=== PATIENT | female | born 1945 | race Caucasian/White ===

== ENCOUNTER 2016-08-23 14:20 | Inpatient (IN) | payer OTHER, MEDICARE ==
[~2016-08-23] VITALS: Ht 162.6 cm; Wt 67.5 kg
[~2016-08-23 14:20] MED LIST: AGGRENOX1 CAPSULE PO; AMITRIPTYLINE H25 MG PO; ARICEPT5 MG PO; ASPIR-LOW81 MG PO; ATENOLOL25 MG PO; BIOTIN5 M1 PO; CALCIUM ANTAC1000 MG PO; CELEXA20 MG PO; CENTRUM SILVER1 EAC3 PO; CIPRO500 MG PO; CYANOCOBAL1000 MCG/2 IM; FISH OIL500 MG PO; FLAGYL500 MG PO; FLORA-Q CAPSUL1 EAC1 PO; GABAPENTIN300 MG PO; HYDROCHLOROTH12.5 M3 PO; HYDROCHLOROTHIA25 MG PO; LEVOTHYROXINE25 MCG PO; MELOXICAM7.5 MG PO; METRONIDAZOLE500 MG PO; MUCINEX1200 MG PO; NEURONTIN100 MG PO; PRILOSEC20 MG PO; SYNTHROID112 MCG PO; VICODIN HP 10-1 EACH PO; VITAMIN B12 IM; XANAX0.25 MG PO; ZOCOR10 MG PO
[2016-08-23 15:34] LABS: HEMATOCRIT 36.6 % (36.0-46.0); MCH 27.8 PG (29.0-34.0); MCHC 31.4 G/DL (30.0-36.0); MCV 88.4 FL (83-99); PLATELET COUNT 172 K/uL (156-360); RBC DIS.WIDTH-CV 15.3 % (11.8-14.6); RBC DIS.WIDTH-SD 49.7 % (39-53); RED BLOOD COUNT 4.14 M/uL (3.80-5.20); WHITE BLOOD COUNT 7.7 K/uL (4.1-10.2)
[2016-08-23 15:50] LABS: CHLORIDE 107 mEq/L (99-109); POTASSIUM 3.9 mEq/L (3.7-5.4); SODIUM 142 mEq/L (136-147)
[2016-08-23 15:52] LABS: GLUCOSE 111 mg/dL (70-99)
[2016-08-23 15:53] LABS: ANION GAP 10 MEQ/L (2-14)
[2016-08-23 15:55] LABS: GFR ESTIMATE (CALCULATED) > 59 mL/min/
[2016-08-23 15:56] LABS: TROP-I INTERPRETATION NEGATIVE; TROPONIN-I < 0.01 ng/mL (0.0-0.30); UREA NITROGEN (BUN) 10 mg/dL (9-23)
[2016-08-23] MEDS ORDERED: ARICEPT10 MG PO (18:05)
[2016-08-23] MEDS ORDERED: ZOCOR40 MG PO (18:06)
[2016-08-23] MEDS ORDERED: OMEGA 3 500 SO1 EACH PO (18:08)
[2016-08-23] MEDS ORDERED: NEURONTIN300 MG PO (18:11)
[2016-08-23] MEDS ORDERED: CALCIUM ANTAC1000 MG PO (18:14)
[2016-08-23] MEDS ORDERED: SYNTHROID100 MCG PO (18:16)
[2016-08-23] MEDS ORDERED: VITAMIN B-12500 MC5 SL (18:17)
[2016-08-23] MEDS ORDERED: BENTYL10 MG PO (18:19)
[2016-08-23] MEDS ORDERED: TRAZODONE HCL50 MG PO (18:19)
[2016-08-23] MEDS ORDERED: ALENDRONATE SOD70 MG PO (18:20)
[2016-08-23] MEDS ORDERED: ASCORBIC ACID500 M1 PO (18:21)
[2016-08-23] MEDS ORDERED: VITAMIN D31000 UNIT PO (18:21)
[2016-08-23 20:04] LABS: HDL CHOLESTEROL 55 MG/DL (Desirable>=50); LDL CHOLESTEROL 82 mg/dL (Desirable<100); NON-HDL CHOLESTEROL 100 mg/dL (Desirable<160); TOTAL CHOLESTEROL 155 mg/dL (Desirable<200); TRIGLYCERIDES 90 MG/DL (Normal: <150)
[2016-08-23 20:58] LABS: Estimated Average Glucose 120 mg/dL (70-123); HEMOGLOBIN A1c (GLYCOHEMOGLOB) 5.8 % HGB (Below 5.7)
[2016-08-23 22:14] VITALS: BP 170/84
[2016-08-24 03:41] VITALS: BP 186/84
[2016-08-24 06:59] LABS: HEMATOCRIT 39.1 % (36.0-46.0); MCH 27.6 PG (29.0-34.0); MCHC 31.7 G/DL (30.0-36.0); MCV 87.1 FL (83-99); MEAN PLAT.VOLUME 10.1 uM^3 (9.5-12.4); PLATELET COUNT 180 K/uL (156-360); RBC DIS.WIDTH-CV 15.2 % (11.8-14.6); RBC DIS.WIDTH-SD 48.7 % (39-53); RED BLOOD COUNT 4.49 M/uL (3.80-5.20); WHITE BLOOD COUNT 7.1 K/uL (4.1-10.2)
[2016-08-24 07:05] LABS: ADD MIUA? YES; BILIRUBIN NEGATIVE; BLOOD NEGATIVE; COLOR YELLOW ((YELLOW)); GLUCOSE (STRIP) NEGATIVE; KETONES 80; LEUKOCYTES NEGATIVE; NITRITE NEGATIVE; PROTEIN (STRIP) NEGATIVE; SPECIFIC GRAVITY 1.016 (1.000-1.030); UROBILINOGEN 0.2 MG/DL (0.2-1.0)
[2016-08-24 07:13] LABS: BACTERIA RARE /HPF; EPITHELIAL CELLS RARE /HPF; MUCUS TRACE /LPF; WHITE BLOOD CELLS 0-5 /HPF (0-5)
[2016-08-24 07:27] LABS: ALKALINE PHOSPHATASE 63 IU/L (3-129); ANION GAP 10 MEQ/L (2-14); C-REACTIVE PROTEIN 20.9 MG/L (0-10); CHLORIDE 102 MEQ/L (99-109); GFR ESTIMATE (CALCULATED) > 59 mL/min/; GLUCOSE 117 mg/dL (70-99); POTASSIUM 3.7 MEQ/L (3.7-5.4); SAMPLE HEMOLYSIS CHECK 0; SAMPLE ICTERIC CHECK 0; SAMPLE LIPEMIA CHECK 0; SODIUM 137 MEQ/L (136-147); TOTAL BILIRUBIN 1.1 MG/DL (0.0-1.0); UREA NITROGEN (BUN) 12 mg/dL (9-23)
[2016-08-24 07:44] VITALS: BP 160/85
[2016-08-24 12:00] VITALS: BP 184/96
[2016-08-24 13:31] LABS: TREPONEMA ANTIBODY NEGATIVE (NEGATIVE)
[2016-08-24 16:04] VITALS: BP 161/72
[2016-08-24 20:00] VITALS: BP 166/74
[2016-08-25 00:36] VITALS: BP 198/85
[2016-08-25 00:50] VITALS: BP 168/85
[2016-08-25 08:10] VITALS: BP 191/91
[2016-08-25 10:37] LABS: ANION GAP 11 MEQ/L (2-14); CHLORIDE 103 MEQ/L (99-109); GFR ESTIMATE (CALCULATED) > 59 mL/min/; GLUCOSE 115 mg/dL (70-99); POTASSIUM 3.7 MEQ/L (3.7-5.4); SAMPLE HEMOLYSIS CHECK 0; SAMPLE ICTERIC CHECK 0; SAMPLE LIPEMIA CHECK 0; SODIUM 141 MEQ/L (136-147); UREA NITROGEN (BUN) 19 mg/dL (9-23)
[2016-08-25 10:42] LABS: EOSINOPHIL (%) 0 % (0-5); HEMATOCRIT 39.7 % (36.0-46.0); IMMATURE GRANULOCYTE (%) 0.2 % (0.0-0.7); LYMPHOCYTE COUNT 0.7 K/uL (1.0-2.8); MCH 27.4 PG (29.0-34.0); MCHC 31.7 G/DL (30.0-36.0); MCV 86.3 FL (83-99); MEAN PLAT.VOLUME 10.9 uM^3 (9.5-12.4); MONOCYTE (%) 8.1 % (3-12); MONOCYTE COUNT 0.7 K/uL (0-0.8); NEUTROPHIL (%) 82.8 % (45-76); PLATELET COUNT 222 K/uL (156-360); RBC DIS.WIDTH-CV 15.2 % (11.8-14.6); RBC DIS.WIDTH-SD 48.2 % (39-53); WHITE BLOOD COUNT 8.4 K/uL (4.1-10.2)
[2016-08-25 17:34] VITALS: BP 156/75
[2016-08-25 19:48] VITALS: BP 182/82
[2016-08-26 08:02] LABS: EOSINOPHIL (%) 0 % (0-5); HEMATOCRIT 39.8 % (36.0-46.0); IMMATURE GRANULOCYTE (%) 0.4 % (0.0-0.7); INSTRUMENT ABS NEUTROPHIL CT 6.6 K/uL; LYMPHOCYTE COUNT 0.9 K/uL (1.0-2.8); MCH 27.7 PG (29.0-34.0); MCHC 31.9 G/DL (30.0-36.0); MCV 86.7 FL (83-99); MEAN PLAT.VOLUME 10.4 uM^3 (9.5-12.4); MONOCYTE (%) 9.3 % (3-12); MONOCYTE COUNT 0.8 K/uL (0-0.8); NEUTROPHIL (%) 79.9 % (45-76); NEUTROPHIL COUNT 6.6 K/uL (1.8-6.4); PLATELET COUNT 239 K/uL (156-360); RBC DIS.WIDTH-CV 15.3 % (11.8-14.6); RBC DIS.WIDTH-SD 48.6 % (39-53); RED BLOOD COUNT 4.59 M/uL (3.80-5.20); WHITE BLOOD COUNT 8.3 K/uL (4.1-10.2)
[2016-08-26 08:33] LABS: ANION GAP 11 MEQ/L (2-14); CHLORIDE 106 MEQ/L (99-109); GFR ESTIMATE (CALCULATED) > 59 mL/min/; GLUCOSE 123 mg/dL (70-99); POTASSIUM 3.5 MEQ/L (3.7-5.4); SAMPLE HEMOLYSIS CHECK 0; SAMPLE ICTERIC CHECK 0; SAMPLE LIPEMIA CHECK 0; SODIUM 144 MEQ/L (136-147); UREA NITROGEN (BUN) 25 mg/dL (9-23)
[2016-08-26 20:00] VITALS: BP 139/68
[2016-08-27 07:30] LABS: EOSINOPHIL (%) 0 % (0-5); IMMATURE GRANULOCYTE (%) 0.3 % (0.0-0.7); INSTRUMENT ABS NEUTROPHIL CT 4.4 K/uL; LYMPHOCYTE COUNT 1.1 K/uL (1.0-2.8); MCH 27.9 PG (29.0-34.0); MCV 87.3 FL (83-99); MEAN PLAT.VOLUME 10.4 uM^3 (9.5-12.4); MONOCYTE (%) 9.9 % (3-12); MONOCYTE COUNT 0.6 K/uL (0-0.8); NEUTROPHIL (%) 72.2 % (45-76); NEUTROPHIL COUNT 4.4 K/uL (1.8-6.4); PLATELET COUNT 241 K/uL (156-360); RBC DIS.WIDTH-CV 15.5 % (11.8-14.6); RBC DIS.WIDTH-SD 49.3 % (39-53); RED BLOOD COUNT 4.58 M/uL (3.80-5.20); WHITE BLOOD COUNT 6.1 K/uL (4.1-10.2)
[2016-08-27 07:48] VITALS: BP 168/74
[2016-08-27] MEDS ORDERED: AMLODIPINE BESY10 MG PO (07:51)
[2016-08-27] MEDS ORDERED: CITALOPRAM HBR10 MG PO (07:52)
[2016-08-27] MEDS ORDERED: TRAZODONE HCL50 MG PO (07:52)
[2016-08-27] MEDS ORDERED: NEURONTIN300 MG PO (07:53)
[2016-08-27 07:54] LABS: ANION GAP 11 MEQ/L (2-14); CHLORIDE 108 MEQ/L (99-109); GFR ESTIMATE (CALCULATED) > 59 mL/min/; GLUCOSE 130 mg/dL (70-99); POTASSIUM 3.1 MEQ/L (3.7-5.4); SAMPLE HEMOLYSIS CHECK 0; SAMPLE ICTERIC CHECK 0; SAMPLE LIPEMIA CHECK 0; SODIUM 146 MEQ/L (136-147); UREA NITROGEN (BUN) 25 mg/dL (9-23)
[2016-08-27] MEDS ORDERED: METRONIDAZOLE500 MG PO (07:54)
[2016-08-27] MEDS ORDERED: ALPRAZOLAM0.25 M2 PO (07:55)
== END 2016-08-27 10:33 | disposition home health service (06) | DRG 69 ==
LOC: EME 14:20 → EDOF 18:49 → 5SOUTH 18:49 → EDOF 19:28 → 5SOUTH 21:03
PROVIDERS: Emergency Medicine; Hospitalist; Internal Medicine
DX: G45.9 Transient cerebral ischemic attack, unspecified (principal); F05 Delirium due to known physiological condition; F33.9 Major depressive disorder, recurrent, unspecified; N39.0 Urinary tract infection, site not specified; K58.9 Irritable bowel syndrome, unspecified; I10 Essential (primary) hypertension; E11.9 Type 2 diabetes mellitus without complications; E78.5 Hyperlipidemia, unspecified; E03.9 Hypothyroidism, unspecified; M54.9 Dorsalgia, unspecified; Z87.440 Personal history of urinary (tract) infections; F03.90 Unspecified dementia, unspecified severity, without behavioral disturbance, psychotic disturbance, mood disturbance, and anxiety; Z86.73 Personal history of transient ischemic attack (TIA), and cerebral infarction without residual deficits
CPT/HCPCS: 70450; 70551; 71020; 74176; 80048; 80053; 80061; 81003; 82607; 82746; 82948; 83036; 84443; 84484; 85025; 85027; 86140; 86780; 87493; 92523 GN; 93005; 93880; 97532 GN; 99281; 99285; J1644

== ENCOUNTER 2016-11-06 17:43 | Inpatient (IN) | payer OTHER, MEDICARE ==
[~2016-11-06] VITALS: Ht 162.6 cm; Wt 48.2 kg
[~2016-11-06 17:43] MED LIST changes: +ALENDRONATE SOD70 MG PO; +ALPRAZOLAM0.25 M2 PO; +AMLODIPINE BESY10 MG PO; +ARICEPT10 MG PO; +ASCORBIC ACID500 M1 PO; +BENTYL10 MG PO; +CITALOPRAM HBR10 MG PO; +NEURONTIN300 MG PO; +OMEGA 3 500 SO1 EACH PO; +SYNTHROID100 MCG PO; +TRAZODONE HCL50 MG PO; +VITAMIN B-12500 MC5 SL; +VITAMIN D31000 UNIT PO; +ZOCOR40 MG PO
[2016-11-06 19:26] LABS: MCH 27.6 PG (29.0-34.0); MCHC 31.4 G/DL (30.0-36.0); MCV 87.9 FL (83-99); MEAN PLAT.VOLUME 9.5 uM^3 (9.5-12.4); PLATELET COUNT 187 K/uL (156-360); RBC DIS.WIDTH-CV 14.6 % (11.8-14.6); RED BLOOD COUNT 4.21 M/uL (3.80-5.20); WHITE BLOOD COUNT 6.8 K/uL (4.1-10.2)
[2016-11-06 19:35] LABS: CHLORIDE 103 mEq/L (99-109); POTASSIUM 3.9 mEq/L (3.7-5.4); SODIUM 140 mEq/L (136-147)
[2016-11-06 19:37] LABS: GLUCOSE 91 mg/dL (70-99)
[2016-11-06 19:38] LABS: ANION GAP 8 MEQ/L (2-14)
[2016-11-06 19:41] LABS: GFR ESTIMATE (CALCULATED) > 59 mL/min/; UREA NITROGEN (BUN) 8 mg/dL (9-23)
[2016-11-06] MEDS ORDERED: HYDROCODON-ACE1 EAC9 PO (19:47)
[2016-11-06] MEDS ORDERED: GABAPENTIN300 MG PO (19:47)
[2016-11-06] MEDS ORDERED: ALPRAZOLAM0.5 MG PO (19:48)
[2016-11-06] MEDS ORDERED: TRAZODONE HCL50 MG PO (19:48)
[2016-11-06] MEDS ORDERED: CITALOPRAM HBR20 MG PO (19:48)
[2016-11-06] MEDS ORDERED: VOLTAREN50 MG PO (19:51)
[2016-11-07 00:09] VITALS: BP 144/85
[2016-11-07 00:48] LABS: BILIRUBIN NEGATIVE; BLOOD NEGATIVE; COLOR STRAW ((YELLOW)); GLUCOSE (STRIP) NEGATIVE; KETONES NEGATIVE; LEUKOCYTES NEGATIVE; NITRITE NEGATIVE; PROTEIN (STRIP) NEGATIVE; SPECIFIC GRAVITY 1.005 (1.000-1.030); UROBILINOGEN 0.2 MG/DL (0.2-1.0)
[2016-11-07 00:49] LABS: ADD MIUA? NO
[2016-11-07 01:02] LABS: TROP-I INTERPRETATION NEGATIVE; TROPONIN-I < 0.01 ng/mL (0.0-0.30)
[2016-11-07 05:02] VITALS: BP 151/72
[2016-11-07 06:22] LABS: POINT-OF-CARE METER ID UU14149397
[2016-11-07 07:18] LABS: ALKALINE PHOSPHATASE 70 IU/L (3-129); ANION GAP 10 MEQ/L (2-14); CHLORIDE 103 MEQ/L (99-109); GFR ESTIMATE (CALCULATED) > 59 mL/min/; GLUCOSE 109 mg/dL (70-99); POTASSIUM 4.3 MEQ/L (3.7-5.4); SAMPLE HEMOLYSIS CHECK 0; SAMPLE ICTERIC CHECK 0; SAMPLE LIPEMIA CHECK 0; SODIUM 140 MEQ/L (136-147); TOTAL BILIRUBIN 1.2 MG/DL (0.0-1.0); UREA NITROGEN (BUN) 7 mg/dL (9-23)
[2016-11-07 07:39] VITALS: BP 138/63
[2016-11-07 07:41] LABS: EOSINOPHIL (%) 0 % (0-5); HEMATOCRIT 34.7 % (36.0-46.0); IMMATURE GRANULOCYTE (%) 0.6 % (0.0-0.7); IMMATURE GRANULOCYTE COUNT 0.1 K/uL; LYMPHOCYTE COUNT 0.7 K/uL (1.0-2.8); MCH 28.1 PG (29.0-34.0); MCHC 32.3 G/DL (30.0-36.0); MEAN PLAT.VOLUME 11.1 uM^3 (9.5-12.4); MONOCYTE (%) 8.3 % (3-12); MONOCYTE COUNT 0.7 K/uL (0-0.8); NEUTROPHIL (%) 82.4 % (45-76); PLATELET COUNT 184 K/uL (156-360); RBC DIS.WIDTH-CV 14.6 % (11.8-14.6); RBC DIS.WIDTH-SD 46.7 % (39-53); RED BLOOD COUNT 3.99 M/uL (3.80-5.20); WHITE BLOOD COUNT 8.5 K/uL (4.1-10.2)
[2016-11-07 10:33] VITALS: BP 130/60
[2016-11-07 11:25] LABS: POINT-OF-CARE METER ID UU14188577
[2016-11-07 16:05] VITALS: BP 137/65
[2016-11-07 19:38] VITALS: BP 173/78
[2016-11-07 21:57] LABS: POINT-OF-CARE METER ID UU14149397
[2016-11-08 01:02] LABS: POINT-OF-CARE METER ID UU13113675
[2016-11-08 02:03] VITALS: BP 160/77
[2016-11-08 03:37] VITALS: BP 122/58
[2016-11-08 06:26] LABS: MCH 28.1 PG (29.0-34.0); MCHC 31.6 G/DL (30.0-36.0); MCV 88.9 FL (83-99); MEAN PLAT.VOLUME 9.9 uM^3 (9.5-12.4); PLATELET COUNT 152 K/uL (156-360); RBC DIS.WIDTH-CV 14.7 % (11.8-14.6); RBC DIS.WIDTH-SD 47.8 % (39-53); WHITE BLOOD COUNT 8.2 K/uL (4.1-10.2)
[2016-11-08 06:52] LABS: ANION GAP 5 MEQ/L (2-14); CHLORIDE 102 MEQ/L (99-109); GFR ESTIMATE (CALCULATED) > 59 mL/min/; GLUCOSE 140 mg/dL (70-99); POTASSIUM 4.2 MEQ/L (3.7-5.4); SAMPLE HEMOLYSIS CHECK 0; SAMPLE ICTERIC CHECK 0; SAMPLE LIPEMIA CHECK 0; SODIUM 138 MEQ/L (136-147); UREA NITROGEN (BUN) 11 mg/dL (9-23)
[2016-11-08 06:53] LABS: TROP-I INTERPRETATION NEGATIVE; TROPONIN-I 0.29 ng/mL (0.0-0.30)
[2016-11-08 08:04] VITALS: BP 152/68
[2016-11-08 11:34] LABS: MAGNESIUM 1.6 mg/dl (1.3-2.7)
[2016-11-08 11:53] LABS: POINT-OF-CARE METER ID UU14149397
[2016-11-08 12:20] VITALS: BP 144/64
[2016-11-08 16:13] VITALS: BP 185/77
[2016-11-08 16:39] LABS: POINT-OF-CARE METER ID UU14149397
[2016-11-08 19:18] VITALS: BP 153/66
[2016-11-08 21:53] LABS: POINT-OF-CARE METER ID UU14149397
[2016-11-09] VITALS (7 sets, daily range): BP systolic 116–140; BP diastolic 56–83
[2016-11-09 06:44] LABS: HEMATOCRIT 27.8 % (36.0-46.0); MCV 88.3 FL (83-99)
[2016-11-09 07:12] LABS: ANION GAP 5 MEQ/L (2-14); CHLORIDE 103 MEQ/L (99-109); GFR ESTIMATE (CALCULATED) > 59 mL/min/; GLUCOSE 125 mg/dL (70-99); POTASSIUM 4.5 MEQ/L (3.7-5.4); SAMPLE HEMOLYSIS CHECK 0; SAMPLE ICTERIC CHECK 0; SAMPLE LIPEMIA CHECK 0; SODIUM 139 MEQ/L (136-147); UREA NITROGEN (BUN) 9 mg/dL (9-23)
[2016-11-09 07:12] LABS: POINT-OF-CARE METER ID UU14149397
[2016-11-09 07:24] LABS: TROP-I INTERPRETATION NEGATIVE; TROPONIN-I 0.29 ng/mL (0.0-0.30)
[2016-11-09 11:55] LABS: POINT-OF-CARE METER ID UU14149397
[2016-11-09 22:00] LABS: POINT-OF-CARE METER ID UU14149397
[2016-11-10 03:27] VITALS: BP 94/54
[2016-11-10 06:32] LABS: HEMATOCRIT 28.9 % (36.0-46.0); MCH 28.8 PG (29.0-34.0); MCHC 31.8 G/DL (30.0-36.0); MCV 90.6 FL (83-99); MEAN PLAT.VOLUME 10.7 uM^3 (9.5-12.4); PLATELET COUNT 142 K/uL (156-360); RBC DIS.WIDTH-CV 15.4 % (11.8-14.6); RBC DIS.WIDTH-SD 50.6 % (39-53); RED BLOOD COUNT 3.19 M/uL (3.80-5.20); WHITE BLOOD COUNT 8.4 K/uL (4.1-10.2)
[2016-11-10 07:25] VITALS: BP 139/70
[2016-11-10] MEDS ORDERED: LOPRESSOR25 MG PO (10:12)
[2016-11-10] MEDS ORDERED: HYDROCODON-ACE1 EAC9 PO (10:12)
[2016-11-10 11:48] VITALS: BP 114/56
[2016-11-10 12:04] LABS: POINT-OF-CARE METER ID UU14149397
== END 2016-11-10 14:24 | DRG 470 ==
LOC: EME 17:43 → EDOF 22:11 → 3EAST 22:11
PROVIDERS: Emergency Medicine; Hospitalist; Internal Medicine; Internal Medicine Cardiovascular Disease; Orthopaedic Surgery; Physician Assistant
PROC: 0SRR0JA Replacement of Right Hip Joint, Femoral Surface with Synthetic Substitute, Uncemented, Open Approach (ICD-10-PCS; principal; 2016-11-08)
DX: S72.001A Fracture of unspecified part of neck of right femur, initial encounter for closed fracture (principal); W01.0XXA Fall on same level from slipping, tripping and stumbling without subsequent striking against object, initial encounter; Y92.007 Garden or yard of unspecified non-institutional (private) residence as the place of occurrence of the external cause; I10 Essential (primary) hypertension; G40.909 Epilepsy, unspecified, not intractable, without status epilepticus; E03.9 Hypothyroidism, unspecified; E11.9 Type 2 diabetes mellitus without complications; E78.5 Hyperlipidemia, unspecified; F02.81 Dementia in other diseases classified elsewhere, unspecified severity, with behavioral disturbance; F32.9 Major depressive disorder, single episode, unspecified; G30.9 Alzheimer's disease, unspecified; F02.80 Dementia in other diseases classified elsewhere, unspecified severity, without behavioral disturbance, psychotic disturbance, mood disturbance, and anxiety; G89.29 Other chronic pain; M51.36 Other intervertebral disc degeneration, lumbar region; M81.0 Age-related osteoporosis without current pathological fracture; R94.31 Abnormal electrocardiogram [ECG] [EKG]; R00.0 Tachycardia, unspecified; Z79.82 Long term (current) use of aspirin; Z87.891 Personal history of nicotine dependence; Z86.73 Personal history of transient ischemic attack (TIA), and cerebral infarction without residual deficits; Z79.891 Long term (current) use of opiate analgesic
CPT/HCPCS: 70450; 71010; 72125; 73501; 73502; 73552; 80048; 80053; 81003; 82948; 83735; 84484; 85014; 85018; 85025; 85027; 85610; 93005; 94799; 97530 GO; 97530 GP; 99281; 99285; J0690; J1170; J1644; J1650; J1815; J1885; J2270; J2405; J3010; J7030; J7120

== ENCOUNTER 2017-02-11 16:03 | Emergency (ER) | payer OTHER, MEDICARE ==
[~2017-02-11] VITALS: Ht 162.6 cm; Wt 69.1 kg
[~2017-02-11 16:03] MED LIST changes: +ALPRAZOLAM0.5 MG PO; +CITALOPRAM HBR20 MG PO; +HYDROCODON-ACE1 EAC9 PO; +LOPRESSOR25 MG PO; +VOLTAREN50 MG PO
[2017-02-11 19:36] VITALS: BP 112/58
== END 2017-02-11 19:20 | disposition home or self-care (01) ==
LOC: EME 16:03
PROC: 3E0234Z Introduction of Serum, Toxoid and Vaccine into Muscle, Percutaneous Approach (ICD-10-PCS; principal; 2017-02-11)
DX: S00.03XA Contusion of scalp, initial encounter (principal); W18.30XA Fall on same level, unspecified, initial encounter; Z87.81 Personal history of (healed) traumatic fracture; Z98.890 Other specified postprocedural states; Z86.73 Personal history of transient ischemic attack (TIA), and cerebral infarction without residual deficits; F41.9 Anxiety disorder, unspecified; F03.90 Unspecified dementia, unspecified severity, without behavioral disturbance, psychotic disturbance, mood disturbance, and anxiety; I10 Essential (primary) hypertension; E78.5 Hyperlipidemia, unspecified; F32.9 Major depressive disorder, single episode, unspecified; E03.9 Hypothyroidism, unspecified; Z87.891 Personal history of nicotine dependence
CPT/HCPCS: 70450; 99281; 99284